=== PATIENT | female | born 1955 | race Caucasian/White ===

== ENCOUNTER 2023-07-28 13:38 | Outpatient (CLI) | payer MEDICARE, MEDICAID | END 2023-07-28 23:59 | disposition home or self-care (01) | LOC: MRI 13:38 | PROVIDERS: ATTEND Pediatrics Sports Medicine | DX: M25.811 Other specified joint disorders, right shoulder (principal); M75.41 Impingement syndrome of right shoulder; M25.511 Pain in right shoulder; M25.561 Pain in right knee; M25.562 Pain in left knee; M94.261 Chondromalacia, right knee; M94.262 Chondromalacia, left knee | CPT/HCPCS: 73221 ==